=== PATIENT | female | born 1930 | race Asian ===

== ENCOUNTER 2017-08-15 15:41 | Inpatient (IN) | payer MEDICARE, BC ==
[~2017-08-15] VITALS: Ht 154.9 cm; Wt 53.1 kg
[2017-08-15] MEDS ORDERED: Sodium Chloride 500ML 500 ML IV ONE (15:45)
--- NOTE | 2017-08-15 15:59 | Emergency Room Report ---
History of Present Illness General Chief Complaint: Generalized Weakness Source: Patient, Medical Record, EMS Present Illness HPI Patient [place] the mall essentially was sitting down in a chair in the shoe section The person with her came back and found her essentially unresponsive Patient started to slide down the chair And was helped to the ground paramedics were summoned and patient appears to have sustained labs of consciousness episode At this time denies any headache denies any chest pain or short of breath She reports that she gets tired sometimes in the afternoon Denies any focal weakness denies any change with her speech Allergies: Coded Allergies: No Known Allergies (Unverified , 08/15/17) Patient History Past Medical History: see triage record Pertinent Family History: none Reviewed Nursing Documentation: PMH: Agreed, PSxH: Agreed Nursing Documentation-PMH Hx Diabetes: Yes Review of Systems All Other Systems: negative except mentioned in HPI Physical Exam Vital Signs Date Time Temp Pulse Resp B/P (MAP) Pulse Ox O2 Delivery O2 Flow Rate FiO2 08/15/17 15:29 97.6 91 18 110/60 100 Room Air 97.5 Sp02 EP Interpretation: reviewed, normal General Appearance: well appearing, no apparent distress Head: normocephalic, atraumatic Eyes: bilateral eye PERRL, bilateral eye EOMI ENT: hearing grossly normal, normal pharynx, TMs + canals normal, uvula midline Neck: full range of motion, supple, no meningismus, no bony tend Respiratory: lungs clear, normal breath sounds, no rhonchi, no respiratory distress, no retraction, no accessory muscle use Cardiovascular #1: normal peripheral pulses, regular rate, rhythm, no edema, no gallop, no JVD, no murmur Gastrointestinal: normal bowel sounds, non tender, soft, no mass, no organomegaly, non-distended, no guarding, no hernia, no pulsatile mass, no rebound Genitourinary: no CVA tenderness Musculoskeletal: normal inspection, back normal Neurologic: oriented x3, responsive, 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, motor strength/ tone normal, sensory intact Psychiatric: mood/affect normal Skin: normal color, no rash, warm/dry, palpation normal Lymphatic: normal inspection, no adenopathy Medical Decision Making Diagnostic Impression: Primary Impression: Syncope ER Course Patient is a fairly complex patient with multiple differential to consideration including but not limited to cardiac cardiopulmonary and vascular emergencies Patient's blood work and imaging are appropriate Patient continues to well given the age risk factors and the clinical presentation Patient admitted for further care Labs Test 08/15/17 16:35 08/15/17 18:07 White Blood Count 7.4 K/UL (4.8-10.8) Red Blood Count 4.69 M/UL (4.20-5.40) Hemoglobin 14.7 G/DL (12.0-16.0) Hematocrit 42.1 % (37.0-47.0) Mean Corpuscular Volume 90 FL (80-99) Mean Corpuscular Hemoglobin 31.4 PG (27.0-31.0) Mean Corpuscular Hemoglobin Concent 34.9 G/DL (32.0-36.0) Red Cell Distribution Width 12.0 % (11.6-14.8) Platelet Count 215 K/UL (150-450) Mean Platelet Volume 5.7 FL (6.5-10.1) Neutrophils (%) (Auto) 81.0 % (45.0-75.0) Lymphocytes (%) (Auto) 10.9 % (20.0-45.0) Monocytes (%) (Auto) 6.6 % (1.0-10.0) Eosinophils (%) (Auto) 0.5 % (0.0-3.0) Basophils (%) (Auto) 0.9 % (0.0-2.0) Sodium Level 141 MMOL/L (136-145) Potassium Level 3.8 MMOL/L (3.5-5.1) Chloride Level 103 MMOL/L (98-107) Carbon Dioxide Level 28 MMOL/L (21-32) Anion Gap 10 mmol/L (5-15) Blood Urea Nitrogen 21 mg/dL (7-18) Creatinine 1.3 MG/DL (0.55-1.30) Estimat Glomerular Filtration Rate mL/min (>60) Glucose Level 247 MG/DL (74-106) Calcium Level 7.8 MG/DL (8.5-10.1) Total Bilirubin 0.4 MG/DL (0.2-1.0) Aspartate Amino Transf (AST/SGOT) 20 U/L (15-37) Alanine Aminotransferase (ALT/SGPT) 22 U/L (12-78) Alkaline Phosphatase 44 U/L (46-116) Total Creatine Kinase 52 U/L (26-308) Creatine Kinase MB 0.7 NG/ML (0.0-3.6) Creatine Kinase MB Relative Index 1.3 Troponin I 0.000 ng/mL (0.000-0.056) Total Protein 6.8 G/DL (6.4-8.2) Albumin 3.5 G/DL (3.4-5.0) Globulin 3.3 g/dL Albumin/Globulin Ratio 1.1 (1.0-2.7) Lipase 139 U/L (73-393) Urine Color Shwetha Urine Appearance Slightly cloudy Urine pH 7 (4.5-8.0) Urine Specific [place] 1.010 (1.005-1.035) Urine Protein 2+ (NEGATIVE) Urine Glucose (UA) 3+ (NEGATIVE) Urine Ketones 1+ (NEGATIVE) Urine Occult Blood Negative (NEGATIVE) Urine Nitrite Negative (NEGATIVE) Urine Bilirubin Negative (NEGATIVE) Urine Ictotest Negative Urine Urobilinogen Normal MG/DL (0.0-1.0) Urine Leukocyte Esterase 1+ (NEGATIVE) Urine RBC 0 /HPF (0 - 2) Urine WBC 5-10 /HPF (0 - 2) Urine Squamous Epithelial Cells Moderate /LPF (NONE/OCC) Urine Bacteria Few /HPF (NONE) Urine Granular Casts 0-2 /LPF (NONE) EKG Diagnostic Results Rate: normal Rhythm: NSR ST Segments: other - Nonspecific ST and T-wave changes, RVH, prolonged QT Rhythm Strip Diag. Results EP Interpretation: yes Rate: 88 Rhythm: NSR, no PVC's, no ectopy Chest X-Ray Diagnostic Results Chest X-Ray Diagnostic Results : Chest X-Ray Ordered: Yes # of Views/Limited/Complete: 1 View Indication: Chest Pain EP Interpretation: Yes Interpretation: no consolidation, no effusion, no pneumothorax Impression: No acute disease Electronically Signed by: Florencia Manriquez DO Last Vital Signs Date Time Temp Pulse Resp B/P (MAP) Pulse Ox O2 Delivery O2 Flow Rate FiO2 08/15/17 15:29 97.6 91 18 110/60 100 Room Air 97.5 Status: improved Disposition: ADMITTED INPATIENT Condition: Serious Florencia Manriquez DO Aug 15, 2017 15:59
[2017-08-15 16:54] LABS: BASOPHILS % (AUTO) 0.9 % (0.0-2.0); EOSINOPHILS % (AUTO) 0.5 % (0.0-3.0); HEMATOCRIT 42.1 % (37.0-47.0); HEMOGLOBIN 14.7 G/DL (12.0-16.0); LYMPHOCYTES % (AUTO) 10.9 % (20.0-45.0); MEAN CORPUSCULAR VOLUME 90 FL (80-99); MONOCYTES % (AUTO) 6.6 % (1.0-10.0); PLATELET COUNT 215 K/UL (150-450); RED BLOOD COUNT 4.69 M/UL (4.20-5.40); WHITE BLOOD COUNT 7.4 K/UL (4.8-10.8)
[2017-08-15 17:34] LABS: ANION GAP 10 mmol/L (5-15); BLOOD UREA NITROGEN 21 mg/dL (7-18); CALCIUM 7.8 MG/DL (8.5-10.1); CARBON DIOXIDE 28 MMOL/L (21-32); CHLORIDE 103 MMOL/L (98-107); CREATININE 1.3 MG/DL (0.55-1.30); POTASSIUM 3.8 MMOL/L (3.5-5.1); SODIUM 141 MMOL/L (136-145)
[2017-08-15 17:47] LABS: ALANINE AMINOTRANSFERASE 22 U/L (12-78); ALBUMIN 3.5 G/DL (3.4-5.0); ALBUMIN/GLOBULIN RATIO 1.1 (1.0-2.7); ALKALINE PHOSPHATASE 44 U/L (46-116); ASPARTATE AMINO TRANSFERASE 20 U/L (15-37); BILIRUBIN,TOTAL 0.4 MG/DL (0.2-1.0); CKMB 0.7 NG/ML (0.0-3.6); CREATINE KINASE 52 U/L (26-308)
[2017-08-15 17:56] VITALS: BP 113/73
[2017-08-15 18:28] LABS: APPEARANCE,URINE SLIGHTLY CLOUDY; BILIRUBIN, URINE NEGATIVE (NEGATIVE); COLOR,URINE AMBER; GLUCOSE, URINE (UA) 3+ (NEGATIVE); KETONES,URINE 1+ (NEGATIVE); LEUKOCYTE ESTERASE ,URINE 1+ (NEGATIVE); NITRITE,URINE NEGATIVE (NEGATIVE); PH,URINE 7 (4.5-8.0); PROTEIN,URINE 2+ (NEGATIVE); UROBILINOGEN,URINE NORMAL MG/DL (0.0-1.0)
[2017-08-15 19:40] VITALS: BP 143/62
[2017-08-15] MEDS ORDERED: VESICARE5 MG ORAL (19:55)
[2017-08-15] MEDS ORDERED: OXYBUTYNIN CHLOR5 M2 PO (19:59)
[2017-08-15 22:05] VITALS: BP 140/68
[2017-08-15] MEDS ORDERED: Zolpidem 5mg tab ORAL PRN (23:15)
[2017-08-15] MEDS ORDERED: Milk of Magnesia 30ml Ud ORAL PRN (23:15)
[2017-08-16] VITALS (7 sets, daily range): BP systolic 140–162; BP diastolic 67–92
[2017-08-16] MEDS: Aspirin Baby 81mg ORAL SCH (08:36)
--- NOTE | 2017-08-16 10:21 | Diagnostic Imaging Report ---
Indication: Pain Technique: XRAY Chest 1v Comparison: None Findings: Heart size and mediastinal contours are within normal limits. There is no focal consolidation, pneumothorax or pleural effusion. There is osteopenia, mild scoliosis and degenerative change of the spine. No definite acute osseous abnormalities appreciated. Impression: No radiographic evidence of acute cardiopulmonary disease.
[2017-08-16 11:45] LABS: CHOLESTEROL 188 MG/DL (< 200); HDL CHOLESTEROL 67 MG/DL (40-60); TRIGLYCERIDES 95 MG/DL (30-150)
--- NOTE | 2017-08-16 14:04 | Cardiology Progress Note ---
Subjective Subjective [id number] Objective Last 24 Hour Vital Signs Date Time Temp Pulse Resp B/P (MAP) Pulse Ox O2 Delivery O2 Flow Rate FiO2 08/16/17 12:07 72 08/16/17 12:00 97.7 75 19 162/77 97 Room Air 97.7 08/16/17 08:00 112 08/16/17 08:00 97.5 82 18 151/83 97 Room Air 97.5 08/16/17 04:00 97.8 86 16 140/67 98 Room Air 97.8 08/16/17 00:00 78 08/16/17 00:00 97.7 84 18 156/76 97 Room Air 97.7 08/15/17 22:30 97.8 82 17 140/68 99 Room Air 97.8 08/15/17 22:05 97.8 82 17 140/68 99 Room Air 97.8 08/15/17 19:40 83 16 143/62 100 Room Air 08/15/17 17:56 97.5 88 15 113/73 100 Room Air 97.5 08/15/17 15:29 97.6 91 18 110/60 100 Room Air 97.5 Intake and Output 08/15/17 08/16/17 19:00 07:00 Intake Total 500 ml Balance 500 ml Other 500 ml Laboratory Tests Test 08/15/17 16:35 08/15/17 18:07 08/16/17 10:00 White Blood Count 7.4 K/UL (4.8-10.8) Red Blood Count 4.69 M/UL (4.20-5.40) Hemoglobin 14.7 G/DL (12.0-16.0) Hematocrit 42.1 % (37.0-47.0) Mean Corpuscular Volume 90 FL (80-99) Mean Corpuscular Hemoglobin 31.4 PG (27.0-31.0) H Mean Corpuscular Hemoglobin Concent 34.9 G/DL (32.0-36.0) Red Cell Distribution Width 12.0 % (11.6-14.8) Platelet Count 215 K/UL (150-450) Mean Platelet Volume 5.7 FL (6.5-10.1) L Neutrophils (%) (Auto) 81.0 % (45.0-75.0) H Lymphocytes (%) (Auto) 10.9 % (20.0-45.0) L Monocytes (%) (Auto) 6.6 % (1.0-10.0) Eosinophils (%) (Auto) 0.5 % (0.0-3.0) Basophils (%) (Auto) 0.9 % (0.0-2.0) Sodium Level 141 MMOL/L (136-145) Potassium Level 3.8 MMOL/L (3.5-5.1) Chloride Level 103 MMOL/L (98-107) Carbon Dioxide Level 28 MMOL/L (21-32) Anion Gap 10 mmol/L (5-15) Blood Urea Nitrogen 21 mg/dL (7-18) H Creatinine 1.3 MG/DL (0.55-1.30) Estimat Glomerular Filtration Rate mL/min (>60) Glucose Level 247 MG/DL (74-106) H Calcium Level 7.8 MG/DL (8.5-10.1) L Total Bilirubin 0.4 MG/DL (0.2-1.0) Aspartate Amino Transf (AST/SGOT) 20 U/L (15-37) Alanine Aminotransferase (ALT/SGPT) 22 U/L (12-78) Alkaline Phosphatase 44 U/L (46-116) L Total Creatine Kinase 52 U/L (26-308) Creatine Kinase MB 0.7 NG/ML (0.0-3.6) Creatine Kinase MB Relative Index 1.3 Troponin I 0.000 ng/mL (0.000-0.056) Total Protein 6.8 G/DL (6.4-8.2) Albumin 3.5 G/DL (3.4-5.0) Globulin 3.3 g/dL Albumin/Globulin Ratio 1.1 (1.0-2.7) Lipase 139 U/L (73-393) Urine Color Shwetha Urine Appearance Slightly cloudy Urine pH 7 (4.5-8.0) Urine Specific [place] 1.010 (1.005-1.035) Urine Protein 2+ (NEGATIVE) H Urine Glucose (UA) 3+ (NEGATIVE) H Urine Ketones 1+ (NEGATIVE) H Urine Occult Blood Negative (NEGATIVE) Urine Nitrite Negative (NEGATIVE) Urine Bilirubin Negative (NEGATIVE) Urine Ictotest Negative Urine Urobilinogen Normal MG/DL (0.0-1.0) Urine Leukocyte Esterase 1+ (NEGATIVE) H Urine RBC 0 /HPF (0 - 2) Urine WBC 5-10 /HPF (0 - 2) H Urine Squamous Epithelial Cells Moderate /LPF (NONE/OCC) H Urine Bacteria Few /HPF (NONE) Urine Granular Casts 0-2 /LPF (NONE) H Magnesium Level 2.0 MG/DL (1.8-2.4) C-Reactive Protein, Quantitative < 0.4 mg/dL (0.00-0.90) Triglycerides Level 95 MG/DL (30-150) Cholesterol Level 188 MG/DL (< 200) LDL Cholesterol 124 mg/dL (<100) H HDL Cholesterol 67 MG/DL (40-60) H Cholesterol/HDL Ratio 2.8 (3.3-4.4) L Thyroid Stimulating Hormone (TSH) 0.980 uiU/mL (0.358-3.740) ANNALISA SCOTT Aug 16, 2017 14:04
--- NOTE | 2017-08-16 15:03 | History & Physical ---
History and Physical History & Physicial HP dictated # [id number] SARAH BARKSDALE Aug 16, 2017 15:03
[2017-08-16] MEDS: Ciprofloxacin 500mg tab ORAL SCH ×2 (15:44→22:15)
--- NOTE | 2017-08-16 21:15 | History and Physical Report ---
DATE OF ADMISSION: 08/15/2017 CHIEF COMPLAINT: The patient had syncope in a mall. HISTORY OF PRESENT ILLNESS: This is an 86-year-old Indian [place] female, who was shopping with her sister yesterday. She felt very tired. She sat in a shoe section and then she does not remember what happened. Apparently, she was found unresponsive. This lasted about 5 minutes. Paramedics were called and the patient was brought to the emergency room and was admitted for workup. The patient has not had any history of syncopes in the past and she denies also history of heart problems. PAST MEDICAL HISTORY: The patient has history of diabetes, but apparently the patient was not taking any medications recently and was diet controlled. ALLERGIES: No known drug allergies. SOCIAL HISTORY: No history of smoking or alcohol abuse. The patient is originally from [place], but she is visiting now [place] and later she is going to move to [place], [place]. REVIEW OF SYSTEMS: Noncontributory. PHYSICAL EXAMINATION: GENERAL: The patient is an elderly female, in no acute distress. VITAL SIGNS: Blood pressure is 162/77, pulse 75, temperature 97.7, and respiratory rate is 19. HEENT: [place] conjunctivae. Anicteric sclerae. NECK: Supple. LUNGS: Clear to auscultation. HEART: S1 and S2 without murmurs or rubs. ABDOMEN: Soft and nontender. EXTREMITIES: No cyanosis or edema. LABORATORY FINDINGS: The CBC shows a WBC of 7.4, hematocrit is 42.1, hemoglobin is 14.7, and platelets is 215,000. The chemistry panel shows a serum sodium of 141, potassium 3.8, chloride 103, CO2 28, BUN is 21, and creatinine 1.3. Blood sugar is 247 and calcium is 7.8. The UA showed 2+ protein and 5 to 10 WBCs per high-power field. ASSESSMENT: This is an 86-year-old [place] female, who was admitted with episode of syncope. Etiology is not clear. She may have been dehydrated. She does have some elevation of her serum creatinine, however, that elevation may be also related to her diabetes. She had also proteinuria. She has also urinary tract infection again that could trigger the symptoms. A cardiac event such as malignant arrhythmia needs to be ruled out. PLAN: The patient will be hydrated cautiously. Cardiology consultation was called and she saw the patient today. I will discuss the case with her. Meanwhile, an echocardiogram needs to be done to make sure the patient has no wall-motion abnormalities and based on those results, further studies may be ordered. , I will also order the urine culture and start the patient empirically on Cipro for urinary tract infection. Adithya Dietrich M.D. DR: SULEIMAN JOB#: [id number] CC: ARDEN
[2017-08-17] VITALS: BP 157/88
--- NOTE | 2017-08-17 01:00 | Consultation ---
DATE OF CONSULTATION: 08/16/2017 NOTE: POOR AUDIO CARDIOLOGY CONSULTATION CONSULTING PHYSICIAN: Brooke Moerno M.D. IDENTIFYING DATA: This is an 86-year-old female. REASON FOR EVALUATION: Syncope. History is taken from her and her family member, I believe her sister, who was with her when she passed out. The patient was at the department store and she to wait for the family member to around and then came back, the patient was unresponsive. She was not on floor. Her eyes were closed and she was not answering the questions, they put her on the floor and called the ambulance. Somebody said that she might have been shaking a little bit and she was unresponsive maybe about 3 to 5 minutes and then she vomited and then she was brought to the emergency department where she was evaluated and appeared to be stable. In the emergency department, her blood pressure was normal, heart rate was normal, little tachycardic, saturation was 100%. PAST MEDICAL HISTORY: Significant for diabetes, maybe hypertension. The patient is not on any medications now because she was traveling a lot and she just came back to this country. PAST SURGICAL HISTORY: Includes hip replacement. ALLERGIES: None reported. HABITS: No history of drinking, smoking, or drug abuse. SOCIAL HISTORY: She is independent. Lives at home. She is to be computer teacher. REVIEW OF SYSTEMS: Remarkable for urinary incontinence. Mild weakness. Mild dizziness. No chest pain. No previous history of syncopal episode. PHYSICAL EXAMINATION: GENERAL: This is a pleasant female. VITAL SIGNS: Blood pressure 140/70, heart rate 80, oxygen saturation is normal, temperature is normal. HEENT: [place]ERR[place]. EOMI. NECK: Supple. Carotid, normal upstroke. There is no bruits. Neck veins are not distended. LUNGS: Clear to auscultation bilaterally. HEART: PMI in the seventh intercostal space in anterior axillary line. There is systolic ejection murmur on the apex, A2 is slightly accentuated, physiologic split of S2. ABDOMEN: Soft and nontender. Bowel sounds are present. EXTREMITIES: Lower extremities, no edema. Distal pulses palpable. LABORATORY AND DIAGNOSTIC DATA: ECG, small Q-waves in II, III, aVF, no acute ST or T changes. Chest x-ray is unremarkable. Blood tests unremarkable. IMPRESSION AND RECOMMENDATION: Syncopal episode, most likely dehydration, but shakiness suspicious, vomiting also suspicious. Recommend Neurology evaluation. Agree with hydration. Order 2D echo. Brooke Moreno M.D. DR: Sheron JOB#: [id number] CC:
[2017-08-17 04:00] VITALS: BP 156/68
[2017-08-17 08:00] VITALS: BP 144/87
[2017-08-17 08:12] LABS: BASOPHILS % (AUTO) 1.2 % (0.0-2.0); HEMATOCRIT 43.5 % (37.0-47.0); HEMOGLOBIN 15.2 G/DL (12.0-16.0); LYMPHOCYTES % (AUTO) 24.5 % (20.0-45.0); MEAN CORPUSCULAR VOLUME 90 FL (80-99); MONOCYTES % (AUTO) 12.3 % (1.0-10.0); PLATELET COUNT 242 K/UL (150-450); RED BLOOD COUNT 4.84 M/UL (4.20-5.40); RED CELL DISTRIBUTION WIDTH 11.9 % (11.6-14.8); WHITE BLOOD COUNT 5.5 K/UL (4.8-10.8)
[2017-08-17 08:54] LABS: ANION GAP 10 mmol/L (5-15); BLOOD UREA NITROGEN 12 mg/dL (7-18); CALCIUM 8.3 MG/DL (8.5-10.1); CARBON DIOXIDE 27 MMOL/L (21-32); CHLORIDE 108 MMOL/L (98-107); CREATININE 0.6 MG/DL (0.55-1.30); POTASSIUM 4.6 MMOL/L (3.5-5.1); SODIUM 144 MMOL/L (136-145)
[2017-08-17] MEDS: Aspirin Baby 81mg ORAL SCH (10:13)
[2017-08-17] MEDS: Ciprofloxacin 500mg tab ORAL SCH ×2 (10:13→22:20)
--- NOTE | 2017-08-17 11:53 | Nephrology Progress Note ---
Assessment/Plan Problem List: (1) Syncope (2) ARF (acute renal failure) (3) HTN (hypertension) (4) UTI (urinary tract infection) Plan IVF Abxs check Echo Neurology consult follow labs Start Amlodipine Subjective Subjective feels ok Objective Objective Last 24 Hour Vital Signs Date Time Temp Pulse Resp B/P (MAP) Pulse Ox O2 Delivery O2 Flow Rate FiO2 08/17/17 04:00 98.0 75 20 156/68 95 Room Air 98.0 08/17/17 04:00 76 08/17/17 00:00 97.7 81 20 157/88 98 Room Air 97.7 08/17/17 00:00 81 08/16/17 21:00 75 82 85 08/16/17 20:00 94 08/16/17 20:00 97.5 94 20 153/77 96 Room Air 97.5 08/16/17 16:00 95.9 85 18 143/92 98 Room Air 95.9 08/16/17 15:31 86 08/16/17 12:07 72 08/16/17 12:00 97.7 75 19 162/77 97 Room Air 97.7 Intake and Output 08/16/17 08/17/17 19:00 07:00 Intake Total 1138 ml Balance 1138 ml Intake Oral 588 ml IV Total 550 ml # Voids 2 2 Laboratory Tests 08/17/17 06:35: White Blood Count 5.5, Red Blood Count 4.84, Hemoglobin 15.2, Hematocrit 43.5, Mean Corpuscular Volume 90, Mean Corpuscular Hemoglobin 31.3H, Mean Corpuscular Hemoglobin Concent 34.9, Red Cell Distribution Width 11.9, Platelet Count 242, Mean Platelet Volume 5.6L, Neutrophils (%) (Auto) 60.0, Lymphocytes (%) (Auto) 24.5, Monocytes (%) (Auto) 12.3H, Eosinophils (%) (Auto) 2.0, Basophils (%) ( Auto) 1.2, Sodium Level 144, Potassium Level 4.6, Chloride Level 108H, Carbon Dioxide Level 27, Anion Gap 10, Blood Urea Nitrogen 12, Creatinine 0.6, Estimat Glomerular Filtration Rate , Glucose Level 109H, Calcium Level 8.3L Height (Feet): 5 Height (Inches): 1.00 Weight (Pounds): 117 Cardiovascular: normal rate Respiratory/Chest: lungs clear Extremities: other - no edema SARAH BARKSDALE Aug 17, 2017 11:53
[2017-08-17 12:00] VITALS: BP 140/85
--- NOTE | 2017-08-17 12:17 | Neurology Progress Note ---
Objective Physical Exam Last Vital Signs Date Time Temp Pulse Resp B/P (MAP) Pulse Ox O2 Delivery O2 Flow Rate FiO2 08/17/17 04:00 98.0 75 20 156/68 95 Room Air 98.0 Laboratory Tests Test 08/17/17 06:35 White Blood Count 5.5 K/UL (4.8-10.8) Red Blood Count 4.84 M/UL (4.20-5.40) Hemoglobin 15.2 G/DL (12.0-16.0) Hematocrit 43.5 % (37.0-47.0) Mean Corpuscular Volume 90 FL (80-99) Mean Corpuscular Hemoglobin 31.3 PG (27.0-31.0) H Mean Corpuscular Hemoglobin Concent 34.9 G/DL (32.0-36.0) Red Cell Distribution Width 11.9 % (11.6-14.8) Platelet Count 242 K/UL (150-450) Mean Platelet Volume 5.6 FL (6.5-10.1) L Neutrophils (%) (Auto) 60.0 % (45.0-75.0) Lymphocytes (%) (Auto) 24.5 % (20.0-45.0) Monocytes (%) (Auto) 12.3 % (1.0-10.0) H Eosinophils (%) (Auto) 2.0 % (0.0-3.0) Basophils (%) (Auto) 1.2 % (0.0-2.0) Sodium Level 144 MMOL/L (136-145) Potassium Level 4.6 MMOL/L (3.5-5.1) Chloride Level 108 MMOL/L (98-107) H Carbon Dioxide Level 27 MMOL/L (21-32) Anion Gap 10 mmol/L (5-15) Blood Urea Nitrogen 12 mg/dL (7-18) Creatinine 0.6 MG/DL (0.55-1.30) Estimat Glomerular Filtration Rate mL/min (>60) Glucose Level 109 MG/DL (74-106) H Calcium Level 8.3 MG/DL (8.5-10.1) L Impression/Recommendations Recommendations #[id number] AD LIU Aug 17, 2017 12:17
[2017-08-17 16:00] VITALS: BP 149/74
--- NOTE | 2017-08-17 17:44 | Diagnostic Imaging Report ---
Indication: Altered mental status, syncope Technique: sagittal T1 fast spin echo, axial T1 FLAIR, axial T2 FLAIR, axial T2 FS PROPELLER, axial T2* GRE, axial diffusion weighted images. ADC and exponential ADC maps generated Comparison: none Findings: No abnormal areas of restricted diffusion to suggest acute infarction. No acute hemorrhage or edema. No mass effect nor midline shift. There is age-related enlargement of the ventricles and extra axial CSF spaces. There is periventricular deep white matter confluent T2 hyperintensities, most likely chronic ischemic change. There is evidence of prior bilateral cataract surgery. There is right maxillary, bilateral ethmoid, and bilateral frontal sinus disease. Impression: Chronic and age-related changes Negative for acute intracranial bleed, mass effect, or infarct
--- NOTE | 2017-08-17 18:25 | Cardiology Progress Note ---
Assessment/Plan Assessment/Plan syncope uti renal insuf aortic sclerosis all tele reviwed neg ekg neg echo perfomred to reviw mri neg on ivf check orthosatic vitals home tomorrow Subjective Cardiovascular: Denies: chest pain, irregular heart rate, lightheadedness, palpitations Respiratory: Denies: shortness of breath Gastrointestinal/Abdominal: Denies: abdominal pain Genitourinary: Denies: burning Subjective walked aroudn several time Objective Last 24 Hour Vital Signs Date Time Temp Pulse Resp B/P (MAP) Pulse Ox O2 Delivery O2 Flow Rate FiO2 08/17/17 16:00 97.3 79 18 149/74 96 Room Air 97.3 08/17/17 14:52 80 140/85 08/17/17 12:00 80 08/17/17 12:00 97.2 78 18 140/85 98 Room Air 97.2 08/17/17 09:00 78 77 87 08/17/17 08:00 97.0 93 19 144/87 97 Room Air 97.0 08/17/17 08:00 101 08/17/17 04:00 98.0 75 20 156/68 95 Room Air 98.0 08/17/17 04:00 76 08/17/17 00:00 97.7 81 20 157/88 98 Room Air 97.7 08/17/17 00:00 81 08/16/17 21:00 75 82 85 08/16/17 20:00 94 08/16/17 20:00 97.5 94 20 153/77 96 Room Air 97.5 General Appearance: no apparent distress, alert Neck: supple Cardiovascular: normal rate, regular rhythm Respiratory/Chest: lungs clear, normal breath sounds Abdomen: normal bowel sounds, non tender, soft Extremities: no swelling Intake and Output 08/16/17 08/17/17 19:00 07:00 Intake Total 1138 ml Balance 1138 ml Intake Oral 588 ml IV Total 550 ml # Voids 2 2 Laboratory Tests Test 08/17/17 06:35 White Blood Count 5.5 K/UL (4.8-10.8) Red Blood Count 4.84 M/UL (4.20-5.40) Hemoglobin 15.2 G/DL (12.0-16.0) Hematocrit 43.5 % (37.0-47.0) Mean Corpuscular Volume 90 FL (80-99) Mean Corpuscular Hemoglobin 31.3 PG (27.0-31.0) H Mean Corpuscular Hemoglobin Concent 34.9 G/DL (32.0-36.0) Red Cell Distribution Width 11.9 % (11.6-14.8) Platelet Count 242 K/UL (150-450) Mean Platelet Volume 5.6 FL (6.5-10.1) L Neutrophils (%) (Auto) 60.0 % (45.0-75.0) Lymphocytes (%) (Auto) 24.5 % (20.0-45.0) Monocytes (%) (Auto) 12.3 % (1.0-10.0) H Eosinophils (%) (Auto) 2.0 % (0.0-3.0) Basophils (%) (Auto) 1.2 % (0.0-2.0) Sodium Level 144 MMOL/L (136-145) Potassium Level 4.6 MMOL/L (3.5-5.1) Chloride Level 108 MMOL/L (98-107) H Carbon Dioxide Level 27 MMOL/L (21-32) Anion Gap 10 mmol/L (5-15) Blood Urea Nitrogen 12 mg/dL (7-18) Creatinine 0.6 MG/DL (0.55-1.30) Estimat Glomerular Filtration Rate mL/min (>60) Glucose Level 109 MG/DL (74-106) H Calcium Level 8.3 MG/DL (8.5-10.1) AKANKSHA TUTTLE Aug 17, 2017 18:25
[2017-08-17 20:00] VITALS: BP 141/77
--- NOTE | 2017-08-17 21:30 | Consultation ---
DATE OF CONSULTATION: 08/17/2017 NEUROLOGICAL CONSULTATION CONSULTING PHYSICIAN: Bimal Davidson M.D. REFERRING PHYSICIAN: Adithya Dietrich M.D. HISTORY OF PRESENT ILLNESS: This is an 86-year-old female seen in neurological consultation to evaluate episodes of transient unresponsiveness. According to the patient, on the day of admission, she was doing fairly well. She had her breakfast with a cup of coffee and toast. Later, she went with her sister to do some shopping, she had lunch during which she had another cup of coffee. Following one hour, they continued shopping. At one point, she went up approximately four flight of stairs which she did fairly well without any associated symptomatology, but on the top of stairs, she felt tiredness, so she had to sit down on a bench while her sister did some shopping in that store. Few minutes later when sister came back, she found her slumped on a bench, or have let down, nonverbal. It did not appear she was pale or eyes were closed and she was not responding to command. Her sister tried to get her up, asked someone to help her, but the patient was "heavy" and so they eased her down to the floor. The patient noted that she was slightly drooling. At one point, a young man who was helping her noted that she was vomiting while eyes were closed. He also suggested that she might have a seizure, although the sister did not observe any paroxysmal events. She described her as being flaccid, not rigid. Urinary incontinence was not checked for, but the patient is always "incontinent" because of "overreactive bladder." There was no tongue biting. Overall, the patient stayed on the ground for few minutes. Paramedics arrived. When paramedics arrived, her 12-lead EKG was negative for any acute changes. The patient was denying chest pain or shortness of breath. She is denying any palpitations, headache, or dizziness. The patient reportedly was hypotensive and on arrival to emergency room, her blood pressure was 110/60 and heart rate of 100. She was fully awake, oriented x3, with no further evidence of changes in level of consciousness. Her initial chest x-ray revealed no evidence of acute cardiopulmonary disease. Lab work was obtained and revealed normal CBC study. Chemistry panel was remarkable for blood sugar 247, calcium 7.8, BUN of 21, elevated LDL at 124, normal TSH, and normal lipase. Urinalysis with 5 to 10 wbc's, 1+ leukocyte esterase, and 2+ protein. A 2D echocardiogram, no mural thrombi, ejection fraction 55% or 60%. The patient's EKG, normal sinus rhythm with prolonged QT. Since admission until present, condition remained unchanged. She is stable. PAST MEDICAL HISTORY: History of diabetes, although the patient stopped taking medications six months ago. She has history of urinary incontinence, "overactive bladder" for which she takes some medications. She is status post right total hip replacement six months ago following which she is using cane for ambulation. ALLERGIES: None reported. SOCIAL HISTORY: Now lives with her sister, but plans to live with her daughter. The patient is a retired teacher. REVIEW OF SYMPTOMS: Currently, she is feeling well. No headache. No dizziness. No chest pain. No palpitation. No unilateral weakness, numbness, or tingling. Complains of slight gait instability following hip replacement, now using cane. She never had seizures. PHYSICAL EXAMINATION: GENERAL: A well-developed, well-nourished, pleasant, elderly lady, not in acute distress. VITAL SIGNS: Stable. MUSCULOSKELETAL: Unremarkable. There are no deformities. Peripheral pulses 1+ and symmetric. MENTAL STATUS: She is alert and oriented x3 with no evidence of aphasia or apraxia. Cognitive function normal. CRANIAL NERVE II: Pupils both responding to light and accommodation. Extraocular movements intact. No nystagmus. CRANIAL NERVE V: Normal corneal responses. CRANIAL NERVE VII: No facial asymmetry. CRANIAL NERVE VIII: Normal hearing. CRANIAL NERVES IX THROUGH XII: Within normal limits. MOTOR EXAMINATION: Normal muscle tone and strength 5/5 in all extremities. No involuntary movement. Deep tendon reflexes 1+ and symmetric with downgoing toes on both sides. SENSORY EXAMINATION: Normal to pinprick and light touch. GAIT: Slightly limping to the right, but stable. IMPRESSION: 1. History of transient loss of consciousness, most likely representing dehydration with syncope, unusual feature, represents prolonged unresponsiveness and vomiting. 2. Diabetes type 2. 3. Urinary incontinence. DISCUSSION: The patient has normal nonfocal neurological examination. Description of event as given by the patient and her sister who witnessed event, it appears to be syncopal although length, it was somewhat longer than usual length with no other associated symptoms, probably related to poor observation by her sister. The patient is scheduled for EEG. I would also obtain MRI of the brain to rule out any acute intracranial abnormalities. I discussed with the patient the importance of proper hydration. She is admitting that she does not feel thirsty and does not drink enough fluid. Issue of underlying diabetes also raised. Thank you for allowing me to see this interesting in neurological consultation. Bimal Cathie Davidson DR: JESSICA JOB#: [id number] CC:
[2017-08-18] VITALS: BP 147/96
[2017-08-18 04:00] VITALS: BP 140/89
[2017-08-18 08:00] VITALS: BP 113/66
[2017-08-18 08:23] LABS: EOSINOPHILS % (AUTO) 1.7 % (0.0-3.0); HEMATOCRIT 43.8 % (37.0-47.0); HEMOGLOBIN 15.3 G/DL (12.0-16.0); MEAN CORPUSCULAR VOLUME 89 FL (80-99); MONOCYTES % (AUTO) 10.6 % (1.0-10.0); NEUTROPHILS % (AUTO) 56.8 % (45.0-75.0); PLATELET COUNT 227 K/UL (150-450); RED CELL DISTRIBUTION WIDTH 11.6 % (11.6-14.8); WHITE BLOOD COUNT 4.8 K/UL (4.8-10.8)
[2017-08-18 09:22] LABS: ANION GAP 10 mmol/L (5-15); BLOOD UREA NITROGEN 11 mg/dL (7-18); CALCIUM 8.5 MG/DL (8.5-10.1); CARBON DIOXIDE 29 MMOL/L (21-32); CHLORIDE 108 MMOL/L (98-107); CREATININE 0.5 MG/DL (0.55-1.30); POTASSIUM 3.7 MMOL/L (3.5-5.1); SODIUM 146 MMOL/L (136-145)
[2017-08-18] MEDS: Ciprofloxacin 500mg tab ORAL SCH (09:57)
[2017-08-18] MEDS: Aspirin Baby 81mg ORAL SCH (09:57)
[2017-08-18 12:00] VITALS: BP 145/79
[2017-08-18] MEDS ORDERED: ASPIRIN81 MG ORAL (14:23)
[2017-08-18] MEDS ORDERED: NORVASC2.5 MG ORAL (14:23)
--- NOTE | 2017-08-18 14:24 | Consultation ---
Consult Note Assessment/Plan stable Dc today SARAH BARKSDALE Aug 18, 2017 14:24
--- NOTE | 2017-08-18 14:49 | Cardiology Progress Note ---
Assessment/Plan Assessment/Plan syncope relatedt o hyperdynamic LV fucntion in setting of volume depletion uti renal insuf aortic sclerosis all tele reviwed neg ekg neg echo no official report available so i personally reviewed the echo images my self appear hyperdynamic with mid cavity obliteration mri neg recommended that pt make suer she drinks plenty of fluid and avoid diuretic unless prescribed by a treating portfolio consultant in future home today d/w dr johnson d/w pt Subjective Cardiovascular: Denies: chest pain, irregular heart rate, lightheadedness, palpitations Respiratory: Denies: shortness of breath Gastrointestinal/Abdominal: Denies: abdominal pain Genitourinary: Denies: burning Subjective walked aroudn several time Objective Last 24 Hour Vital Signs Date Time Temp Pulse Resp B/P (MAP) Pulse Ox O2 Delivery O2 Flow Rate FiO2 08/18/17 12:00 97.7 84 18 145/79 97 Room Air 97.7 08/18/17 12:00 85 08/18/17 09:57 123 113/66 08/18/17 08:00 97.0 123 18 113/66 98 Room Air 97.0 08/18/17 08:00 117 08/18/17 06:11 103 110 105 08/18/17 04:00 99 08/18/17 04:00 97.1 87 18 140/89 97 Room Air 97.1 08/18/17 00:00 87 08/18/17 00:00 96.6 99 20 147/96 97 Room Air 96.6 08/17/17 20:00 81 08/17/17 20:00 96.6 81 18 141/77 97 Room Air 96.6 08/17/17 16:00 91 08/17/17 16:00 97.3 79 18 149/74 96 Room Air 97.3 08/17/17 14:52 80 140/85 General Appearance: no apparent distress, alert Neck: supple Cardiovascular: normal rate, regular rhythm Respiratory/Chest: lungs clear, normal breath sounds Abdomen: normal bowel sounds, non tender, soft Extremities: no swelling Intake and Output 08/17/17 08/18/17 19:00 07:00 Intake Total 720 ml 550 ml Balance 720 ml 550 ml Intake Oral 720 ml IV Total 550 ml # Voids 7 # Bowel Movements 1 Laboratory Tests Test 3/20/18 07:25 White Blood Count 4.8 K/UL (4.8-10.8) Red Blood Count 4.90 M/UL (4.20-5.40) Hemoglobin 15.3 G/DL (12.0-16.0) Hematocrit 43.8 % (37.0-47.0) Mean Corpuscular Volume 89 FL (80-99) Mean Corpuscular Hemoglobin 31.2 PG (27.0-31.0) H Mean Corpuscular Hemoglobin Concent 34.8 G/DL (32.0-36.0) Red Cell Distribution Width 11.6 % (11.6-14.8) Platelet Count 227 K/UL (150-450) Mean Platelet Volume 5.5 FL (6.5-10.1) L Neutrophils (%) (Auto) 56.8 % (45.0-75.0) Lymphocytes (%) (Auto) 30.0 % (20.0-45.0) Monocytes (%) (Auto) 10.6 % (1.0-10.0) H Eosinophils (%) (Auto) 1.7 % (0.0-3.0) Basophils (%) (Auto) 1.0 % (0.0-2.0) Sodium Level 146 MMOL/L (136-145) H Potassium Level 3.7 MMOL/L (3.5-5.1) Chloride Level 108 MMOL/L (98-107) H Carbon Dioxide Level 29 MMOL/L (21-32) Anion Gap 10 mmol/L (5-15) Blood Urea Nitrogen 11 mg/dL (7-18) Creatinine 0.5 MG/DL (0.55-1.30) L Estimat Glomerular Filtration Rate mL/min (>60) Glucose Level 128 MG/DL (74-106) H Calcium Level 8.5 MG/DL (8.5-10.1) Troponin I 0.000 ng/mL (0.000-0.056) Pro-B-Type Natriuretic Peptide 73 pg/mL (0-125) AKANKSHA KAUR Aug 18, 2017 14:49
[2017-08-18] MEDS ORDERED: D5 1/2NS 1000ml IV ONE (16:05)
--- NOTE | 2017-08-18 17:45 | Electroencephalogram ---
DATE OF PROCEDURE: 08/17/2017 ELECTROENCEPHALOGRAPHY REPORT REQUESTING PHYSICIAN: Adithya Dietrich M.D. HISTORY: This 86-year-old female with history of transient unresponsiveness, suspected to have seizure component. EEG was requested. The patient currently on Norvasc, Cipro, and Ambien. No anticonvulsants. No sedation given prior to the study. TECHNIQUE: EEG was done using 18 electrodes placed on scalp to scalp, scalp to ear montages according to 10/20 [employer] System. The patient described as being awake, drowsy with good cooperation. Most wakeful portions of recording, background activity consisted of predominantly 7 cycles per second activity symmetric with good response to physiological stimulation. A photic stimulation from 3 to 33 hertz was done, result no significant changes. No spike and wave activity. No asymmetry noted. IMPRESSION: Normal awake stage 1 sleep electroencephalogram with photic stimulation. Evidence of slight excessive slowing noted, but most likely represent a normal aging variant. No paroxysmal event noted. Bimal Davidson M.D. DR: JESSICA JOB#: [id number] CC:
--- NOTE | 2017-08-18 18:21 | Discharge Summary ---
Discharge Summary Hospital Course Date of Admission Aug 15, 2017 at 20:12 Date of Discharge Aug 18, 2017 at 16:06 Admitting Diagnosis syncope HPI Kath Dempsey is a 86 year old female who was admitted on Aug 15, 2017 at 20:12 for Syncope Hospital Course [id number] Discharge Discharge Disposition Patient was discharged to Home (01) Discharge Diagnoses: Selena Saez NP Aug 18, 2017 18:21
--- NOTE | 2017-08-18 18:30 | Cardiology Report ---
APPROVED REPORT EKG Measurement Heart [id number] Normal sinus rhythm Possible Right ventricular hypertrophy Abnormal ECG
--- NOTE | 2017-08-18 18:44 | Cardiology Report ---
APPROVED REPORT EKG Measurement Heart [id number] Normal sinus rhythm Possible Right ventricular hypertrophy Prolonged QT Abnormal ECG
--- NOTE | 2017-08-19 03:45 | Discharge Summary 2 SIG ---
DATE OF ADMISSION: 08/15/2017 DATE OF DISCHARGE: 08/18/2017 CONSULTANTS: 1. Bimal Davidson M.D. 2. Osiel Toro M.D. BRIEF HOSPITAL COURSE: The patient is an 86-year-old [place] female, who was shopping and felt tired. She sat and eventually lost consciousness and she was found unresponsive. She does not remember what happened. Paramedics were called in. The patient was taken to emergency room. She has history of diabetes and apparently has not been taking any medications. On evaluation at ED, blood work showed no leukocytosis. Troponin was negative. EKG showed normal sinus rhythm. Chest x-ray showed no consolidation, no effusion, no pneumothorax, and no acute disease. She was admitted for syncope and for possible urinary tract infection as UA showed 2+ protein and 5 to 10 wbc's per HPF. She was admitted to telemetry and underwent cardio evaluation. EKG showed small Q-waves in leads 2, 3, and AVF, however, there was no acute ST to T-wave changes. She underwent neurologic evaluation. MRI of the brain done showed chronic age-related changes, negative for acute intracranial bleed, mass effect, or infarct. She also underwent an EEG that showed normal awake stage 1 sleep cycle. There was slight slowing noted, but most likely representing normal aging variant. There was no paroxysmal events noted. Her telemetry had been negative. Echocardiogram was done, however no official report. Syncope was assessed to be related to hyperdynamic LV function in the setting of volume depletion. She was recommended to keep adequate hydration and avoid diuretics. She was eventually cleared for discharge home. FINAL DIAGNOSES: 1. Syncope related to LV hyperdynamic function in the setting of volume depletion. 2. Urinary tract infection. The patient was treated with ciprofloxacin. 3. Aortic sclerosis. 4. Renal insufficiency. 5. Urinary incontinence. DISCHARGE DISPOSITION: The patient was discharged home. DISCHARGE MEDICATIONS: Refer to medication list. DISCHARGE INSTRUCTIONS: Follow up as outpatient in a week. Adithya Dietrich M.D. I have been assigned to dictate discharge summary on this account and I was not involved in the patient's management. Selena Saez N.P. DR: SHAN JOB#: [id number] CC: ARDEN
--- NOTE | 2017-08-19 20:10 | Cardiology Report ---
APPROVED REPORT EXAM: Two-dimensional and M-mode echocardiogram with Doppler and color Doppler. INDICATION Tachycardia M-Mode DIMENSIONS IVSd1.0 (0.7-1.1cm)Left Atrium (MM)2.7 (1.6-4.0cm) LVDd3.6 (3.5-5.6cm)Aortic Root2.6 (2.0-3.7cm) PWd0.8 (0.7-1.1cm)Aortic Cusp Exc.1.6 (1.5-2.0cm) LVDs1.7 (2.5-4.0cm) PWs1.4 cm Normal left ventricular chamber size, systolic function and wall motion. Left ventricular ejection fraction estimated to be 55-60 %. No evidence of left ventricular hypertrophy. Anterior Echo-free space, may be due to pericardial fat or effusion. All other cardiac chamber sizes are within normal limits. Focal aortic valve sclerosis with adequate cusp excursion. Thickened mitral valve leaflets with normal excursion. Mitral annulus and aortic root calcification. Normal pulmonic valve structure. Normal tricuspid valve structure. IVC is normal in size with physiological collapse. A color flow and spectral Doppler study was performed and revealed: Mild to moderate aortic insufficiency. Trace mitral regurgitation. Mitral diastolic velocities suggest mild left ventricular diastolic dysfunction (Grade I). Mild tricuspid regurgitation. Tricuspid systolic velocities suggests peak right ventricular systolic pressure of 30 mmHg. Mild pulmonic regurgitation present.
== END 2017-08-18 16:06 | disposition home or self-care (01) | DRG 690 ==
LOC: EDBD 15:41 → EMR 19:19 → OBSVTOIN 20:12 → INTOOBSV 20:12 → 2E 20:12 → EDBEDREQ 21:03
DX: N39.0 Urinary tract infection, site not specified (principal); N17.9 Acute kidney failure, unspecified; E86.0 Dehydration; E11.8 Type 2 diabetes mellitus with unspecified complications; I10 Essential (primary) hypertension; I70.0 Atherosclerosis of aorta; R32 Unspecified urinary incontinence; Z96.649 Presence of unspecified artificial hip joint
CPT/HCPCS: 36415; 70551; 71045; 80048; 80053; 80061; 81003; 82550; 82553; 83690; 83735; 83880; 84443; 84484; 85025; 86140; 87086; 93005; 93306; 95819; 99285